=== PATIENT | male | born 1975 | race Caucasian/White ===

== ENCOUNTER → 2020-10-08 | Outpatient (CLI) | payer OTHER ==
--- NOTE | 2020-10-08 18:48 | RAD ---
PROCEDURE: XR SHOULDER_LEFT 2+ VIEWS STUDY DATE: 10/08/2020 CLINICAL INDICATION / HISTORY: Reason: SHOULDER PAIN / Spl. Instructions: / History: . TECHNIQUE: Axillary, scapular Y and AP views of the left shoulder were obtained COMPARISON: None FINDINGS: No fracture, dislocation or bone destruction is identified. There are no degenerative carrasco es at the left AC joint. No calcifications are seen in relation to the rotator cuff insertion. IMPRESSION: No acute osseous abnormality Electronically signed by: Nydia Randall MD (10/08/2020 6:46 PM) [id number]
== END ==
LOC: DXRAD 14:07
PROVIDERS: ATTEND Orthopaedic Surgery Sports Medicine
DX: M25.512 Pain in left shoulder (principal)
CPT/HCPCS: 73030